=== PATIENT | male | born 1995 | race Caucasian/White ===

== ENCOUNTER 2016-07-26 09:34 | Emergency (ER) | payer OTHER ==
[2016-07-26 09:37] VITALS: BP 136/59; PULSE 86; TEMP 98.6; BMI 25.0
--- NOTE | 2016-07-26 10:16 | PDOC ---
History of Present Illness - General Chief Complaint: Cold Symptoms Stated Complaint: COUGH Time Seen by Provider: 07/26/16 10:07 History Source: Patient Exam Limitations: No Limitations - History of Present Illness Initial Comments: 07/26/16 10:12 Patient is here with complaints of cough 4 months. Denies fever, denies phlegm production, states is been using [id number] medications with minimal result. Patient has not seen a private physician as his insurance is only recently been. Activated. 07/26/16 10:13 Timing/Duration: reports: constant, intermittent Severity: reports: mild Past History - Travel Traveled outside of the country in the last 30 days: No Close contact w/someone who was outside of country & ill: No - Past Medical History Allergies/Adverse Reactions: Allergies Allergy/AdvReac Type Severity Reaction Status Date / Time No Known Allergies Allergy Verified 07/26/16 09:37 Home Medications: Ambulatory Orders NK [No Known Home Medication] 07/26/16 Other medical history: NONE - Immunization History Immunization Up to Date: Yes - Psycho/Social/Smoking Cessation Hx Anxiety: No Suicidal Ideation: No Smoking Status: No Smoking History: Never smoked Number of Cigarettes Smoked Daily: 0 Hx Alcohol Use: Yes (SOCIAL) Drug/Substance Use Hx: No Substance Use Type: None Respiratory Specific PMHX - Complaint Specific PMHX Bronchitis: No Pneumonia: No Review of Systems - Review of Systems Able to Perform ROS?: Yes Is the patient limited Telugu proficient: Yes Constitutional: Yes: Symptoms Reported, See HPI. No: Fever, Loss of Appetite, Malaise HEENTM: Yes: See HPI. No: Symptoms Reported, Nose Congestion, Throat Pain Respiratory: Yes: See HPI, Cough (nonproductive). No: Symptoms reported, Wheezing Musculoskeletal: No: Symptoms Reported Integumentary: Yes: Symptoms Reported, See HPI All Other Systems: Reviewed and Negative *Physical Exam - Vital Signs Last Vital Signs Temp Pulse Resp BP Pulse Ox 98.6 F 86 20 136/59 99 07/26/16 09:35 07/26/16 09:35 07/26/16 09:35 07/26/16 09:35 07/26/16 09:35 - Physical Exam General Appearance: Yes: Nourished, Appropriately Dressed. No: Apparent Distress HEENT: positive: ROD, Normal ENT Inspection, Normal Voice, Symmetrical, TMs Normal, Pharynx Normal (no postnasal drainage). negative: Nasal Congestion, Rhinorrhea Neck: positive: Supple. negative: Lymphadenopathy (R), Lymphadenopathy (L) Respiratory/Chest: positive: Lungs Clear, Normal Breath Sounds (no wheezing or retractions,) Gastrointestinal/Abdominal: positive: Soft. negative: Tender Musculoskeletal: positive: Normal Inspection Extremity: positive: Normal Inspection, Normal Range of Motion Integumentary: positive: Normal Color, Dry, Warm, Pale Neurologic: positive: pre sales architect II-XII NML intact, Fully Oriented, Alert, Normal Mood/ Affect, Normal Response, Motor Strength /5 Progress Note - Progress Note Progress Note: Chronic cough, probable ALLERGIC nature. We'll recommend antihistamines and follow-up for thorough physical with [facility] physicians *DC/Admit/Observation/Transfer Diagnosis at time of Disposition: Cough - Discharge Dispostion Disposition: HOME Condition at time of disposition: Stable Admit: No - Patient Instructions Printed Discharge Instructions: DI for Allergic Rhinitis Additional Instructions: Rest, drink lots of fluids: Teas, water, soups Saltwater gargles. Consider humidifier in room at night Steamy showers/seem to face break up mucus Avoid contact with allergens, exposure to pollens, close windows on a windy day Lots of handwashing and good hygiene Continue [id number] medications for symptomatic relief- may use allergic eyedrops for itching I Continue antihistamines daily until pollen season is over; Zyrtec, Claritin, Lakeisha during the daytime and Benadryl at nighttime as will make sleepy Tylenol or Motrin for fever and pain Followup with private physician in one to 2 days as needed Consider following up with an certified fire investigator/automotive parts interpreter for skin testing and possible allergy shots Return to emergency department for worsened symptoms, fevers, dehydration
== END 2016-07-26 10:18 | disposition home or self-care (01) ==
LOC: JERFT 09:34
DX: R05 Cough (principal)
CPT/HCPCS: 99281-25

== ENCOUNTER 2016-10-07 18:34 | Emergency (ER) | payer OTHER ==
--- NOTE | 2016-10-07 18:36 | PDOC ---
History of Present Illness - History of Present Illness Initial Comments: 10/07/16 18:38 The patient is a 21 year old male with no past medical hx who presents to the ED complaining of a constant cough for five months. The patient states he was sick with a fever and cough in April. He reports his fever went away but his cough did not. The patient reports his cough was a little better in July, but has progressively gotten worse the past three days. The patient notes a white colored sputum. The patient denies shortness of breath, chest pain, fever , chills, nasal congestion, rhinorrhea, body aches, dysuria. The patient denies any recent sick contacts or travel. <Lilian Rich - Last Filed: 10/07/16 18:39> <Rachel Brannon - Last Filed: 10/07/16 18:53> - General Chief Complaint: Cold Symptoms Stated Complaint: COUGH SINCE OCT Time Seen by Provider: 10/07/16 18:35 Past History <Lilian Rich - Last Filed: 10/07/16 18:39> - Immunization History Immunization Up to Date: Yes - Psycho/Social/Smoking Cessation Hx Anxiety: No Suicidal Ideation: No Smoking Status: No Smoking History: Never smoked Number of Cigarettes Smoked Daily: 0 Hx Alcohol Use: Yes (SOCIAL) Drug/Substance Use Hx: No Substance Use Type: None <Rachel Brannon - Last Filed: 10/07/16 18:53> - Past Medical History Allergies/Adverse Reactions: Allergies Allergy/AdvReac Type Severity Reaction Status Date / Time No Known Allergies Allergy Verified 10/07/16 18:35 Home Medications: Ambulatory Orders Omeprazole 20 mg PO DAILY #14 capsule. 10/07/16 Review of Systems - Review of Systems Able to Perform ROS?: Yes Comments:: 10/07/16 18:39 CONSTITUTIONAL: Absent: fever, chills, diaphoresis, generalized weakness, malaise, loss of appetite HEENT: Absent: rhinorrhea, nasal congestion, throat pain, throat swelling, difficulty swallowing, mouth swelling, ear pain, eye pain, visual Changes CARDIOVASCULAR: Absent: chest pain, syncope, palpitations, irregular heart rate, lightheadedness , peripheral edema RESPIRATORY: +Cough. Absent: shortness of breath, dyspnea with exertion, orthopnea, wheezing , stridor, hemoptysis GASTROINTESTINAL: Absent: abdominal pain, abdominal distension, nausea, vomiting, diarrhea, constipation, melena, hematochezia GENITOURINARY: Absent: dysuria, frequency, urgency, hesitancy, hematuria, flank pain, genital pain MUSCULOSKELETAL: Absent: myalgia, arthralgia, joint swelling SKIN: Absent: rash, itching, pallor HEMATOLOGIC/IMMUNOLOGIC: Absent: easy bleeding, easy bruising, lymphadenopathy, frequent infections ENDOCRINE: Absent: unexplained weight gain, unexplained weight loss, heat intolerance, cold intolerance NEUROLOGIC: Absent: headache, focal weakness or paresthesias, dizziness, unsteady gait, seizure, mental status changes, bladder or bowel incontinence PSYCHIATRIC: Absent: anxiety, depression, suicidal or homicidal ideation, hallucinations. <Lilian Rich - Last Filed: 10/07/16 18:39> *Physical Exam - Physical Exam Comments: 10/07/16 18:39 GENERAL: Well developed, well nourished. Awake and alert. In no acute distress. HEENT: Normocephalic, atraumatic. PERRLA, EOMI. No conjunctival pallor. Sclera are non- icteric. Moist mucous membranes. Oropharynx is clear. NECK: Supple. Full ROM. No JVD. Carotid pulses 2+ and symmetric, without bruits. No thyromegaly. No lymphadenopathy. CARDIOVASCULAR: Regular rate and rhythm. No murmurs, rubs, or gallops. Distal pulses are 2+ and symmetric. PULMONARY: No evidence of respiratory distress. Lungs clear to auscultation bilaterally. No wheezing, rales or rhonchi. ABDOMINAL: Soft. Non-tender. Non-distended. No rebound or guarding. No organomegaly. Normoactive bowel sounds. MUSCULOSKELETAL Normal range of motion at all joints. No bony deformities or tenderness. No CVA tenderness. EXTREMITIES: No cyanosis. No clubbing. No edema. No calf tenderness. SKIN: Warm and dry. Normal capillary refill. No rashes. No jaundice. NEUROLOGICAL: Alert, awake, appropriate. Cranial nerves 2-12 intact. No deficits to light touch and temperature in face, upper extremities and lower extremities. No motor deficits in the in face, upper extremities and lower extremities. Normoreflexic in the upper and lower extremities. Normal speech. Toes are downgoing bilaterally. Gait is normal without ataxia. PSYCHIATRIC: Cooperative. Good eye contact. Appropriate mood and affect. <HilarioLilian - Last Filed: 10/07/16 18:39> Medical Decision Making - Medical Decision Making 10/07/16 18:44 The pt is a 21 year old male with no PMH. He has been coughing for 5 months. Differential diagnosis include; postnasal drip, GERD, Asthma, Interstitial lung disease. We ordered CXR and will start h2 tami to continue a outpatient. 10/07/16 18:51 CXR was reviewed and it doesn't reveal acute pathology. We prescribed Omeprazole 20 mg daily for 2 weeks. <Rachel Brannon - Last Filed: 10/07/16 18:53> *DC/Admit/Observation/Transfer <MayLilian frances - Last Filed: 10/07/16 18:39> - Discharge Dispostion Admit: No <RadhaJeremiahRachel weinstein - Last Filed: 10/07/16 18:53> Diagnosis at time of Disposition: Cough - Discharge Dispostion Disposition: HOME Condition at time of disposition: Stable - Prescriptions Prescriptions: Omeprazole 20 mg PO DAILY #14 capsule.dr - Referrals - Patient Instructions Printed Discharge Instructions: DI for Cough -- Adult Additional Instructions: Keep your appointment with pulmonology as scheduled. It is possible that you are coughing from heartburn. Take the omeprazole as prescribed for 2 weeks to see if it relieves your cough. Return to the emergency department immediately with ANY new, persistent or worsening symptoms. You MUST call and follow up with your doctor tomorrow. Please make sure your doctor reviews the results of your emergency department evaluation. - Post Discharge Activity
--- NOTE | 2016-10-07 18:36 | PDOC ---
Attending Attestation - Resident Resident Name: DavidTonyakayleengennaRachel - ED Attending Attestation I have performed the following: I have examined & evaluated the patient, The case was reviewed & discussed with the resident, I agree w/resident's findings & plan, Exceptions are as noted - HPI HPI: 10/07/16 18:35 The patient is a 21-year-old male, with no significant past medical history, who presents to the emergency department complaining of intermittent cough for the past 5 months. It began after an "upper respiratory tract infection" in April. It improved but not completely, then reoccurred with increased intensity in July for 1 week. It partially resolved again but reoccurred 3 days ago. He was [place] in the [place]. He has not had any known contact with known tuberculosis patients. He has not had any contact with the jail system. He denies fever, night sweats, hemoptysis, weight loss. He has been evaluated in several emergency departments and by his primary care physician. He has a pulmonology appointment scheduled in 1 week. It is not worse at night. He denies acid brash, heartburn symptoms. He denies post nasal drip symptoms, morning sore throat. It is not exacerbated by deep inspiration, cold exposure, exertion. He has no history of asthma or reactive airway disease. He has no history of travel to [place] endemic areas of cocci, blasto, histo. 03 18:43 - Physicial Exam PE: 10/07/16 18:35 The patient is well-appearing and in no acute distress Lungs are clear to auscultation bilaterally - Medical Decision Making 10/07/16 18:35 Will obtain PA and lateral chest x-ray 17 18:44 He does not have clinical symptoms suggestive of asthma or reactive airway disease Will treat with a trial of PPI 10/07/16 18:48 Chest x-ray emergency Department interpretation: No acute cardiopulmonary disease Clinical impression: Chronic cough Possible GERD I discussed the physical exam findings, ancillary test results and final diagnoses with the patient. I answered all of the patient's questions. The patient was satisfied with the care received and felt comfortable with the discharge plan and treatment plan. The patient will call their primary care physician within 24 hours to arrange follow-up and will return to the Emergency Department with any new, persistent or worsening symptoms. Discharge Disposition - Diagnosis Cough - Discharge Dispostion Disposition: HOME Condition at time of disposition: Stable - Patient Instructions Printed Discharge Instructions: DI for Cough -- Adult Additional Instructions: Keep your appointment with pulmonology as scheduled. It is possible that you are coughing from heartburn. Take the omeprazole as prescribed for 2 weeks to see if it relieves your cough. Return to the emergency department immediately with ANY new, persistent or worsening symptoms. You MUST call and follow up with your doctor tomorrow. Please make sure your doctor reviews the results of your emergency department evaluation.
[2016-10-07 18:43] VITALS: BP 135/64; PULSE 74; TEMP 97.9; BMI 26.6
== END 2016-10-07 18:53 | disposition home or self-care (01) ==
LOC: FER 18:34
DX: R05 Cough (principal)
CPT/HCPCS: 71020-TC; 99281-25